=== PATIENT | male | born 1970 | race Caucasian/White ===

== ENCOUNTER 2021-04-29 16:39 | Emergency (ER) | payer OTHER, SELFPAY ==
[2021-04-29 16:39] VITALS: BP 111/83; PULSE 72; RESP 16; TEMP 36.6; O2SAT 99; BMI 32.3
--- NOTE | 2021-04-29 16:50 | CT_ITS ---
STUDY: CT BRAIN WITHOUT CONTRAST REASON FOR EXAM: Male, 51 years old. trauma, headache RADIATION DOSAGE (If Supplied By Facility): CTDIvol = ( 44.99 ) mGy, DLP = ( 846.73 ) mGycm TECHNIQUE: Transaxial CT imaging of the brain was performed without administration of intravenous contrast material. Individualized dose optimization techniques were used for this CT. COMPARISON: No relevant priors. FINDINGS: Normal soft tissue structures. Normal calvarium. Normal size ventricles and extra-axial spaces for the patient''s age. Normal white matter tracts of the cerebral hemispheres. Normal basal ganglia and thalami. Normal brainstem. Normal cerebellum. There is no intracranial hemorrhage. There are no findings of an acute ischemic infarction. Normal visualized paranasal sinuses. CT/Brain/Head without Contrast IMPRESSION: Normal unenhanced CT scan of the brain. Electronically Signed: Ari Lemos MD at 18:03 EST ,
--- NOTE | 2021-04-29 16:50 | CT_ITS ---
STUDY: CT CERVICAL SPINE WITHOUT CONTRAST REASON FOR EXAM: Male, 51 years old. trauma, neck pain RADIATION DOSAGE (If Supplied By Facility): CTDIvol = ( 31.95 ) mGy, DLP = ( 784.13 ) mGycm TECHNIQUE: High resolution transaxial imaging was performed without contrast material. Sagittal and coronal images were reconstructed. Individualized dose optimization techniques were used for this CT. COMPARISON: None FINDINGS: Normal craniovertebral junction. Normal anterior atlantoaxial articulation. Normal odontoid process. Normal cervical lordosis. Normal vertebral bodies and posterior osseous elements. C2-3: Normal endplates. Normal disc height and morphology. Normal central canal and intervertebral neuroforamina. C3-4: Normal endplates. Normal disc height and morphology. Normal central canal and intervertebral neuroforamina. C4-5: Normal endplates. Normal disc height and morphology. Normal central canal and intervertebral neuroforamina. C5-6: Normal endplates. Normal disc height and morphology. Normal central canal and intervertebral neuroforamina. C6-7: Normal endplates. Normal disc height and morphology. Normal central canal and intervertebral neuroforamina. C7-T1: Normal endplates. Normal disc height and morphology. Normal central canal and intervertebral neuroforamina. Normal visualized soft tissue structures. CT/Spine Cervical without Contras IMPRESSION: Normal unenhanced CT examination of the cervical spine. Electronically Signed: Ari Lemos MD at 18:05 EST ,
--- NOTE | 2021-04-29 16:50 | EX.ED.GENINJ ---
HPI History of Present Illness Chief Complaint: Head Injury Informant: patient and spouse/S.O. Onset/Context/Timing Onset: Today Quality of Pain: Aching and Throbbing Current Severity: Moderate Maximum Severity: Moderate Narrative Narrative: Patient presents after head injury. Patient was at a local store and fell on ice in the parking lot. He fell onto his buttocks and then back striking his head on the concrete. states he did not lose consciousness but did take him a few minutes to start speaking to her. He is complaining of headache and was already given Aleve for pain. He denies neck pain or paresthesias/weakness in his arms. He is not on anticoagulants. [facility] Medical History (Updated 04/29/21 @ 18:[address] Joan Dixon MD) High cholesterol Ventricular tachycardia Home Medications Coreg 12.5 mg PO/SL BID 04/29/21 [History Last Taken Unknown] Lipitor 20 mg PO/SL DAILY 04/29/21 [History Last Taken Unknown] lisinopril 20 mg PO/SL BID 04/29/21 [History Last Taken Unknown] Allergy/AdvReac Type Severity Reaction Status Date / Time quinidine Allergy Rash Verified 04/29/21 16:42 Surgical History (Updated 04/29/21 @ 16:[address] Joan Dixon MD) History of cardiac radiofrequency ablation Social History Smoking Status: Never smoker ROS ROS ED Constitutional Constitutional ED: Denies chills or fever(s) Eyes Eyes: Denies blurry vision or change in vision ENT ENT ED: Denies rhinorrhea or sore throat Cardiovascular Cardiovascular: Denies chest pain or palpitations Respiratory/Chest Respiratory/Chest: Denies cough or dyspnea Gastrointestinal Gastrointestinal: Denies abdominal pain, nausea or vomiting Musculoskeletal Musculoskeletal: Denies back pain or neck pain Integumentary Denies abscess Neurologic Neurologic: Reports headache(s); Denies paresthesias or weakness Hematologic/Lymphatic Hematologic/Lymphatic: Denies easy bruising Allergic/Immunologic Allergic/Immunologic ED: Denies urticaria EXAM Physical Exam Const Vital Signs: 04/29/21 16:39 Temperature 97.8 F Temperature Source Temporal Pulse Rate 72 Respiratory Rate 16 Blood Pressure 111/83 H Blood Pressure Mean 92 Pulse Ox 99 Oxygen Delivery Method Room Air Positive well nourished and well developed General Appearance ED: well developed HEENT HEENT Narrative: Contusion noted to the left posterior parietal scalp. No laceration. Eyes PERRL and EOMs intact bilaterally Neck full ROM Chest Wall inspection of chest normal and palpation of chest normal Resp normal respiratory effort and clear to auscultation bilaterally Cardio regular rhythm Rate: regular rate GI non-tender Palpation: soft Back/Spine normal to inspection Extremity normal to inspection and full ROM Neuro oriented x3, moves all extremities, no focal motor deficits and no sensory deficits noted Sensorium / Orientation: alert Psych mental status grossly normal Skin Skin Narrative: Scalp contusion as noted above. MDM MDM MDM Narrative Medical decision making narrative: CT scan of the head and C-spine obtained. Radiography Diagnostic Testing: Clinical Impression(s) from Imaging Studies Brain CT 04/29/21 16:50 IMPRESSION: Normal unenhanced CT scan of the brain. Electronically Signed: Ari Lemos MD at 18:03 EST Reading Location ID and State: [id number] / [employer] Tel , Service support , Cervical Spine CT 04/29/21 16:50 IMPRESSION: Normal unenhanced CT examination of the cervical spine. Electronically Signed: Ari Lemos MD at 18:05 EST Reading Location ID and State: [id number] / [employer] Tel , Service support , Treatment and Re-Evaluation Narrative: CT scans are unremarkable. On repeat evaluation patient lying in bed. does state patient does have some perseveration. We discussed concussions and what to expect. Discharge instructions to be provided for her to refer to. Return instructions also given. Discharge Plan Triage Chief Complaint: Head Injury ED Provider: Joan Dixon Dx/Rx/DC Orders Clinical Impression: Concussion Instructions: ED Concussion Prescriptions: No Action Coreg 12.5 mg PO/SL BID RF: 0 Lipitor 20 mg PO/SL DAILY RF: 0 lisinopril 20 mg PO/SL BID RF: 0 Primary Care Provider: Care Physician,No Primary Referrals: Care Physician,No Primary [Primary Care Provider] - Disposition Disposition: Home, Self Care
--- NOTE | 2021-04-29 18:00 | ED.RN ---
Patient does not want Zofran at this time. Pt states he felt like he was going to throw up but now feels ok.
== END 2021-04-29 18:24 | disposition home or self-care (01) ==
PROVIDERS: Emergency Provider Emergency Medicine; Visit Provider Emergency Medicine
DX: S06.0X0A Concussion without loss of consciousness, initial encounter (principal); S00.03XA Contusion of scalp, initial encounter; Y92.512 Supermarket, store or market as the place of occurrence of the external cause; W00.0XXA Fall on same level due to ice and snow, initial encounter; E78.00 Pure hypercholesterolemia, unspecified; Z79.899 Other long term (current) drug therapy
CPT/HCPCS: 70450; 72125; 99282